=== PATIENT | male | born 1955 | race Caucasian/White ===

== ENCOUNTER 2021-01-04 08:39 | Outpatient (CLI) | payer BC, SELFPAY | END 2021-01-04 08:40 | disposition home or self-care (01) | PROVIDERS: Visit Provider Nurse Practitioner Family | DX: K51.90 Ulcerative colitis, unspecified, without complications (principal) | CPT/HCPCS: 87045; 87324; 87427; 87493 ==

== ENCOUNTER 2021-02-16 07:38 | Outpatient (RCR) | payer MEDICARE, MEDICAID, SELFPAY ==
[2021-02-16] VITALS (9 sets, daily range): BP systolic 113–130; BP diastolic 71–100; PULSE 88–106; RESP 16–19; TEMP 36.7–37.1; O2SAT 96–100
[2021-02-16] MEDS: SODIUM CHLORIDE 0.9% IV 250 ML 30 ML IV CONT (08:19)
[2021-02-16] MEDS: diphenhydrAMINE HCl INJ 50 MG/ML VIAL 25 MG IV PUSH (08:20)
[2021-02-16] MEDS: ACETAMINOPHEN 325 MG TABLET 650 MG PO (08:20)
--- NOTE | 2021-02-16 08:33 | PC.NURSE ---
Written consent obtained, questions answered at this time. Pt reports has felt terrible since last December. Pt reports has been seen frequently in [place] for same and received blood transfusions in the past without incident.
--- NOTE | 2021-02-16 08:51 | PC.NURSE ---
Awaiting confirmed second type routine blood test results.
[2021-02-16 09:19] LABS: Hemoglobin 6.6 g/dL (14.0-18.0)
[2021-02-16 10:05] LABS: Iron < 10 ug/dL (49-181)
[2021-02-16 10:33] LABS: Percent Iron Saturation < 3 % (20-50)
--- NOTE | 2021-02-16 11:09 | PC.NURSE ---
Pt reports has not taken iron supplements for apx 3 weeks. Pt reports iron supplements give him black stools and cause constipation. Pt reports is not able to eat anything due to 'feeling bad' so the iron also causes nausea. Dr. Bender's MA Trudi notified at [facility] via telephone at this time for continuity of care of lab values and pt iron situation. Pt education provided about importance of taking iron pills at home.
[2021-02-16 15:10] LABS: Hematocrit 28.5 % (42.0-52.0); Hemoglobin 8.5 g/dL (14.0-18.0); Mean Corpuscular HGB Conc 29.8 g/dl (32-36); Mean Corpuscular Hemoglobin 22.4 pg (26-34); Mean Corpuscular Volume 75.2 fl (80-100); Mean Platelet Volume 8.8 fl (7.4-10.4); Platelet Count Result 439 k/mm3 (150-375); Red Blood Count 3.79 M/mm3 (4.6-6.20); Red Cell Distribution Width 22.2 % (11.5-14.5); White Blood Count 9.1 K/mm3 (4.5-10.0)
[2021-02-16 16:06] LABS: Band Neutrophils Percent 37 % (0-6); Eosinophils Absolute Manual 0.09 K/mm3 (0.02-0.5); Eosinophils Percent Manual 1 % (0-4); Monocytes Absolute Manual 0.45 K/mm3 (0.1-0.90); Monocytes Percent Manual 5 % (3-9); Neutrophils Absolute Manual 7.55 K/mm3 (1.3-6.7); Neutrophils Percent Manual 46 % (46-73); Total Cells Counted 100
[2021-02-16 16:07] LABS: Anisocytosis 3+ (NORMAL); Platelet Estimate Increased (Adequate)
[2021-02-16 16:08] LABS: Hypochromasia 2+ (NORMAL)
== END 2021-05-16 23:59 | disposition home or self-care (01) ==
LOC: ANHCPCTRAN 07:38
PROVIDERS: PCP Internal Medicine; Visit Provider Internal Medicine Gastroenterology
DX: K51.90 Ulcerative colitis, unspecified, without complications (principal); D50.9 Iron deficiency anemia, unspecified
CPT/HCPCS: 36415; 36430; 82728; 83540; 83550; 85014; 85018; 85025; 86850; 86900; 86901; 86920; A9270; J1200; J7050; P9016

== ENCOUNTER → 2021-03-27 00:02 | Outpatient (CLI) | payer MEDICARE, MEDICAID, SELFPAY ==
[2021-03-27 11:51] LABS: SARS-CoV-2 RNA PCR Negative
== END ==
PROVIDERS: PCP Internal Medicine; Visit Provider Internal Medicine Gastroenterology
DX: Z01.812 Encounter for preprocedural laboratory examination (principal); Z20.822 Contact with and (suspected) exposure to COVID-19
CPT/HCPCS: C9803; U0003; U0005

== ENCOUNTER 2021-03-30 01:39 | Day surgery (SDC) | payer MEDICARE, MEDICAID, SELFPAY ==
[2021-03-17 14:06] VITALS: BMI 24.4
[2021-03-30 08:09] VITALS: BP 103/76; PULSE 123; RESP 17; TEMP 36.1; O2SAT 98; BMI 21.9
[2021-03-30] MEDS: LACTATED RINGERS 1,000 ML 150 ML IV CONT (08:25)
--- NOTE | 2021-03-30 08:32 | SUR.PREOP ---
Pt has bruising on R FA/AC from a previous blood draw.
--- NOTE | 2021-03-30 08:55 | P.PNAN_ITS ---
Anes - Initial Pre Proc Eval Procedure: Operation Date: 03/30/21 09:15 Proposed Procedures p Flexible Sigmoidoscopy - Olman Ham MD Date/Time: 03/30/21 08:55 Surgeon: Olman Ham MD Pre Op Diagnosis: MORGAN, ulcerative colitis Patient Data Age: 66 Gender: M Height: 1.78 m Weight: 69.5 kg Last Vital Signs Temp 97 F L 03/30/21 08:09 Pulse 123 H 03/30/21 08:09 Resp 17 03/30/21 08:09 BP 103/76 03/30/21 08:09 Pulse Ox 98 03/30/21 08:09 Allergies Allergy/AdvReac Type Severity Reaction Status Date / Time Penicillins AdvReac Severe Nausea and Verified 03/30/21 08:08 Vomiting Home Medications Medication Instructions Recorded Confirmed Type cyanocobalamin (vitamin B-12) 1,000 mcg PO DAILY 12/02/20 03/30/21 History 1,000 mcg capsule multivitamin with iron 1 tablet PO DAILY 12/02/20 03/30/21 History tamsulosin 0.4 mg capsule 0.4 mg PO DAILY 12/02/20 03/30/21 History mesalamine 1.2 gram tablet,delayed 4.8 g PO DAILY 90 Days #360 tablet 01/13/21 03/30/21 Rx release ondansetron HCl 4 mg tablet 4 mg PO Q8H PRN #20 tablet 01/13/21 03/30/21 Rx azathioprine 50 mg tablet 50 mg PO DAILY 30 Days #30 tablet 01/26/21 03/30/21 Rx ferrous sulfate 324 mg (65 mg 324 mg PO DAILY 30 Days #30 tablet 02/10/21 03/30/21 Rx iron) tablet,delayed release prednisone 5 mg tablet 5 mg PO DAILY #147 tablet 02/26/21 03/30/21 Rx Patient hx anesthesia problems: none Family hx anesthesia problems: none Results Review: All pre-operative results and documents have been reviewed as part of the pre-operative evaluation. [facility] Past Medical History Medical History Clostridioides difficile infection Iron deficiency anemia Ulcerative colitis Social History Social History Smoking packs per day: 1 Smoking cigarettes per day: 20.0 Tobacco type: cigarettes Second hand tobacco smoke exposure: No Alcohol intake: current Drinks per week: 5 Alcohol use details: Wine Substance use: unknown Substance use type: marijuana Living arrangements: alone Gender identity (if verbalized by the patient): Male Spiritual care concerns: No Agree to blood products: Yes Anes - Eval Final PreProcedure Day of Procedure 03/30/21 08:55 Patient weight: normal Heart: regular rate and rhythm Lungs: clear to auscultation Airway: Mallampati scale class II Neurological: alert and oriented Last oral intake: >/= 8 hours ASA classification: II Emergent: no Anesthetic plan: proceed Anesthesia type and monitoring: general GIVS and standard monitoring Results Review: All pre-operative results and documents have been reviewed as part of the pre-operative evaluation. Informed Consent: The patient's anesthetic plan and its attendant risks and benefits were discussed with the patient/family/POA. Questions were solicited and answers provided to the satisfaction of the patient/family/POA.
--- NOTE | 2021-03-30 09:16 | WPDHPUPDATE1 ---
History and Physical Update Update Date/Time: 03/30/21 09:16 History and Physical has been reviewed, including an updated exam of the patient. There are NO changes in the patient's condition. Risks, benefits, and alternatives have been discussed and questions answered. Patient agrees to proceed with procedure.
[2021-03-30 09:30] VITALS: BP 100/64; PULSE 104; RESP 20; O2SAT 97
[2021-03-30 09:40] VITALS: BP 121/71; PULSE 93; RESP 19; O2SAT 100
[2021-03-30 09:50] VITALS: BP 116/75; PULSE 92; RESP 20; O2SAT 98
== END 2021-03-30 10:08 | disposition home or self-care (01) ==
PROVIDERS: PCP Internal Medicine; Visit Provider Internal Medicine Gastroenterology
PROC: 0DJD8ZZ Inspection of Lower Intestinal Tract, Via Natural or Artificial Opening Endoscopic (ICD-10-PCS; CPT 45330; principal; 2021-03-30 09:15)
DX: Z09 Encounter for follow-up examination after completed treatment for conditions other than malignant neoplasm (principal); K51.00 Ulcerative (chronic) pancolitis without complications; R19.7 Diarrhea, unspecified; D50.9 Iron deficiency anemia, unspecified; Z87.891 Personal history of nicotine dependence; Z86.19 Personal history of other infectious and parasitic diseases; F12.90 Cannabis use, unspecified, uncomplicated; D75.839 Thrombocytosis, unspecified
CPT/HCPCS: 45331; 88305; J2704; J7120

== ENCOUNTER 2021-08-12 10:44 | Outpatient (CLI) | payer MEDICARE, MEDICAID, SELFPAY ==
[2021-08-12 11:22] LABS: Basophils Absolute Auto 0.1 K/mm3 (0.0-0.1); Basophils Percent Auto 0.8 % (0.2-1.2); Eosinophils Percent Auto 0.4 % (0-4.4); Hematocrit 40.6 % (42.0-52.0); Hemoglobin 11.7 g/dL (14.0-18.0); Immature Granulocyte Absolute 0.02 K/mm3 (0.00-0.031); Immature Granulocyte Percent A 0.2 % (0-0.5); Lymphocytes Absolute Auto 0.64 K/mm3 (0.9-3.2); Mean Corpuscular HGB Conc 28.8 g/dl (32-36); Mean Corpuscular Hemoglobin 23.3 pg (26-34); Mean Corpuscular Volume 80.9 fl (80-100); Mean Platelet Volume 9.8 fl (7.4-10.4); Monocytes Absolute Auto 0.3 K/mm3 (0.1-0.6); Monocytes Percent Auto 3.6 % (2.6-8.5); Neutrophils Absolute Auto 8.1 K/mm3 (1.3-6.7); Platelet Count Result 551 k/mm3 (150-375); Red Blood Count 5.02 M/mm3 (4.6-6.20); Red Cell Distribution Width 19.9 % (11.5-14.5); White Blood Count 9.2 K/mm3 (4.5-10.0)
[2021-08-12 11:35] LABS: Alanine Aminotransferase 18 U/L (6-50); Albumin Level 4.2 g/dL (3.5-5.1); Alkaline Phosphatase 78 U/L (38-126); Anion Gap 6 mmol/L (8-16); Aspartate Amino Transferase 29 U/L (17-59); Bilirubin,Total 0.1 mg/dL (0.2-1.3); Blood Urea Nitrogen 17 mg/dL (9-20); Calcium 8.8 mg/dL (8.4-10.2); Carbon Dioxide 25 mmol/L (22-30); Chloride 106 mmol/L (98-107); Estimated Glomerular Filt Rate > 60; Glucose 97 mg/dL (65-110); Potassium 4.9 mmol/L (3.4-5.0); Sodium 137 mmol/L (137-145)
== END 2021-08-12 10:45 | disposition home or self-care (01) ==
LOC: ANHLAB 10:46
PROVIDERS: PCP Internal Medicine; Visit Provider Internal Medicine Hematology & Oncology
DX: D64.9 Anemia, unspecified (principal)
CPT/HCPCS: 36415; 80053; 85025

== ENCOUNTER 2021-10-30 08:38 | Outpatient (CLI) | payer MEDICARE, MEDICAID, SELFPAY ==
[2021-10-30 10:03] LABS: Hematocrit 47.5 % (42.0-52.0); Hemoglobin 14.7 g/dL (14.0-18.0); Mean Corpuscular HGB Conc 30.9 g/dl (32-36); Mean Corpuscular Hemoglobin 26.9 pg (26-34); Mean Platelet Volume 10.6 fl (7.4-10.4); Platelet Count Result 234 k/mm3 (150-375); Red Blood Count 5.46 M/mm3 (4.6-6.20); Red Cell Distribution Width 17.6 % (11.5-14.5); White Blood Count 5.6 K/mm3 (4.5-10.0)
[2021-10-30 10:06] LABS: Alanine Aminotransferase 19 U/L (6-50); Albumin Level 4.2 g/dL (3.5-5.1); Alkaline Phosphatase 67 U/L (38-126); Anion Gap 8 mmol/L (8-16); Aspartate Amino Transferase 24 U/L (17-59); Bilirubin,Total 0.4 mg/dL (0.2-1.3); Blood Urea Nitrogen 19 mg/dL (9-20); CRP < 0.5 mg/dL (<1.0); Calcium 9.2 mg/dL (8.4-10.2); Carbon Dioxide 24 mmol/L (22-30); Chloride 103 mmol/L (98-107); Estimated Glomerular Filt Rate > 60; Glucose 122 mg/dL (65-110); Sodium 135 mmol/L (137-145)
[2021-10-30 10:35] LABS: Erythrocyte Sedimentation Rate 2 mm/hr (0-20)
== END 2021-10-30 08:39 | disposition home or self-care (01) ==
PROVIDERS: PCP Internal Medicine; Visit Provider Nurse Practitioner Family
DX: K51.90 Ulcerative colitis, unspecified, without complications (principal); D50.9 Iron deficiency anemia, unspecified
CPT/HCPCS: 36415; 80053; 85027; 85652; 86140

== ENCOUNTER 2022-01-12 13:26 | Outpatient (CLI) | payer MEDICARE, MEDICAID, SELFPAY ==
[2022-01-12 13:49] LABS: Hematocrit 47.4 % (42.0-52.0); Hemoglobin 15.1 g/dL (14.0-18.0); Mean Corpuscular HGB Conc 31.9 g/dl (32-36); Mean Corpuscular Hemoglobin 28.5 pg (26-34); Mean Corpuscular Volume 89.6 fl (80-100); Mean Platelet Volume 10.1 fl (7.4-10.4); Platelet Count Result 245 k/mm3 (150-375); Red Blood Count 5.29 M/mm3 (4.6-6.20); Red Cell Distribution Width 14.2 % (11.5-14.5); White Blood Count 6.5 K/mm3 (4.5-10.0)
[2022-01-12 14:03] LABS: Iron 62 ug/dL (49-181)
[2022-01-12 14:05] LABS: Alanine Aminotransferase 20 U/L (6-50); Albumin Level 4.6 g/dL (3.5-5.1); Alkaline Phosphatase 82 U/L (38-126); Anion Gap 9 mmol/L (8-16); Aspartate Amino Transferase 27 U/L (17-59); Bilirubin,Total 0.3 mg/dL (0.2-1.3); Blood Urea Nitrogen 19 mg/dL (9-20); CRP < 0.5 mg/dL (<1.0); Carbon Dioxide 28 mmol/L (22-30); Chloride 104 mmol/L (98-107); Estimated Glomerular Filt Rate > 60; Glucose 105 mg/dL (65-110); Potassium 4.1 mmol/L (3.4-5.0); Sodium 141 mmol/L (137-145)
[2022-01-12 14:12] LABS: Percent Iron Saturation 13 % (20-50)
[2022-01-12 15:40] LABS: Erythrocyte Sedimentation Rate 4 mm/hr (0-20)
== END 2022-01-12 13:27 | disposition home or self-care (01) ==
PROVIDERS: Visit Provider Nurse Practitioner Family
DX: K51.90 Ulcerative colitis, unspecified, without complications (principal); D50.9 Iron deficiency anemia, unspecified
CPT/HCPCS: 36415; 80053; 82728; 83540; 83550; 85027; 85652; 86140

== ENCOUNTER 2022-03-22 01:29 | Day surgery (SDC) | payer MEDICARE, MEDICAID, SELFPAY ==
[2022-03-08 14:28] VITALS: BMI 25.6
[2022-03-22 08:41] VITALS: BP 125/85; PULSE 78; RESP 16; TEMP 36; O2SAT 98; BMI 25.2
[2022-03-22] MEDS: LACTATED RINGERS 1,000 ML 150 ML IV CONT (08:54)
--- NOTE | 2022-03-22 09:23 | PM.HPGS ---
History of Present Illness History of Present Illness Consent: Risks, benefits, and alternatives have been discussed and questions answered. Patient agrees to proceed with procedure. Chief complaint: ulcerative colitis Narrative: Henrry Qureshi is a 67 year old male with uc/pancolitis diagnosed 2020, colonoscopy last year still with active disease, now feels much better with infliximab infusion, mesalamine and imuran. He is not longer anemic, still loose stools in the morning but he can tell difference and even started working again. Review of Systems Constitutional: Constitutional: Denies headache(s) and Denies weakness Eyes: Eyes: Denies blurry vision ENT: Reports Normal hearing present, Denies headache(s) and Denies neck pain Cardiovascular: Cardiovascular: Denies chest pain and Denies dyspnea Respiratory: Respiratory: Denies dyspnea Gastrointestinal: Gastrointestinal: Reports no additional gastrointestinal complaints Genitourinary: Genitourinary: Denies dysuria Musculoskeletal: Musculoskeletal: Denies neck pain Integumentary/Breasts: Skin/Breast: Denies dry skin Neurologic: Reports Normal hearing present, Denies headache(s) and Denies weakness Psychiatric: Psychiatric: Denies anxiety Endocrine: Endocrine: Denies change in body appearance Hematologic/Lymphatic: Hematologic/Lymphatic: Denies easy bleeding Allergic/Immunologic: Allergic/Immunologic: Denies urticaria PMFSH Past Medical History Medical History Clostridioides difficile infection Iron deficiency anemia Thrombocytosis Ulcerative colitis Social History Social History Smoking packs per day: 1 Smoking cigarettes per day: 20.0 Years smoked: 30 Smoking pack-years: 30.00 Smoking status: Former smoker Tobacco type: cigarettes Second hand tobacco smoke exposure: No Smoking end date: 03/17/09 Alcohol intake: former Drinks per week: 5 Alcohol use details: Wine Substance use: current Substance use type: marijuana Last use: Daily Living arrangements: alone Gender identity (if verbalized by the patient): Male Spiritual care concerns: No Agree to blood products: Yes Meds Home Medications and Allergies Home Medications Medication Instructions Recorded Confirmed Type infliximab 100 mg intravenous See Rx Instructions .Route .COMPLEX 11/02/21 03/22/22 History solution (Remicade) mesalamine 1.2 gram tablet,delayed 4.8 g PO DAILY 3 months #360 tabs 12/06/21 03/22/22 Rx release azathioprine 50 mg tablet (Imuran) 50 mg PO DAILY #90 tabs 12/24/21 03/22/22 Rx ferrous sulfate 325 mg (65 mg 65 mg PO DAILY 03/08/22 03/22/22 History iron) capsule,extended release multivitamin with minerals-folic 1 tablet PO DAILY 03/08/22 03/22/22 History acid 0.4 mg tablet Allergies Allergy/AdvReac Type Severity Reaction Status Date / Time amoxicillin Allergy Rash Verified 03/22/22 08:40 Vital Signs Vital Signs - 24 hr 03/22/22 08:41 Temperature 96.8 F L Pulse Rate 78 Respiratory Rate 16 Blood Pressure 125/85 Pulse Oximetry 98 Oxygen Delivery Room Air Exam Const: General: comfortable and no acute distress HENMT: Face/Nose/Sinus: Normal nares present Eyes: General: appearance normal, both eyes and all related structures Neck: Neck: no JVD Resp: Auscultation: clear to auscultation bilaterally Cardio: Rate: regular rate Rhythm: regular rhythm GI: Inspection: non-distended GI Palp: Yes Soft to palpation Skin: General skin exam: normal color Neuro: General: gait normal Speech: normal speech Extrem: General: normal to inspection Psych: Mental Status: mental status grossly normal Assessment and Plan Assessment and plan (1) Ulcerative colitis: Code(s): K51.90 - Ulcerative colitis, unspecified, without complications Status: Acute Assessment and Plan:
--- NOTE | 2022-03-22 09:24 | WPDANESEPPF ---
Anes - Initial Pre Proc Eval Procedure: Operation Date: 03/22/22 10:00 Proposed Procedures p Colonoscopy - Olman Ham MD Date/Time: 03/22/22 09:24 Surgeon: Olman Ham MD Pre Op Diagnosis: ulcerative colitis Patient Data Age: 67 Gender: M Height: 1.78 m Weight: 79.7 kg Last Vital Signs Temp 96.8 F L 03/22/22 08:41 Pulse 78 03/22/22 08:41 Resp 16 03/22/22 08:41 BP 125/85 03/22/22 08:41 Pulse Ox 98 03/22/22 08:41 O2 Del Method Room Air 03/22/22 08:41 Allergies Allergy/AdvReac Type Severity Reaction Status Date / Time amoxicillin Allergy Rash Verified 03/22/22 08:40 Home Medications Medication Instructions Recorded Confirmed Type infliximab 100 mg intravenous See Rx Instructions .Route .COMPLEX 11/02/21 03/22/22 History solution (Remicade) mesalamine 1.2 gram tablet,delayed 4.8 g PO DAILY 3 months #360 tabs 12/06/21 03/22/22 Rx release azathioprine 50 mg tablet (Imuran) 50 mg PO DAILY #90 tabs 12/24/21 03/22/22 Rx ferrous sulfate 325 mg (65 mg 65 mg PO DAILY 03/08/22 03/22/22 History iron) capsule,extended release multivitamin with minerals-folic 1 tablet PO DAILY 03/08/22 03/22/22 History acid 0.4 mg tablet Patient hx anesthesia problems: none Family hx anesthesia problems: none Results Review: All pre-operative results and documents have been reviewed as part of the pre-operative evaluation. [facility] Past Medical History Medical History Clostridioides difficile infection Iron deficiency anemia Thrombocytosis Ulcerative colitis Social History Social History Smoking packs per day: 1 Smoking cigarettes per day: 20.0 Years smoked: 30 Smoking pack-years: 30.00 Smoking status: Former smoker Tobacco type: cigarettes Second hand tobacco smoke exposure: No Smoking end date: 03/17/09 Alcohol intake: former Drinks per week: 5 Alcohol use details: Wine Substance use: current Substance use type: marijuana Last use: Daily Living arrangements: alone Gender identity (if verbalized by the patient): Male Spiritual care concerns: No Agree to blood products: Yes Anes - Eval Final PreProcedure Day of Procedure 03/22/22 09:24 Patient weight: normal Heart: regular rate and rhythm Lungs: clear to auscultation Airway: Mallampati scale class II Neurological: alert and oriented Last oral intake: >/= 8 hours ASA classification: II Emergent: no Anesthetic plan: proceed Anesthesia type and monitoring: general GIVS and standard monitoring Results Review: All pre-operative results and documents have been reviewed as part of the pre-operative evaluation. Informed Consent: The patient's anesthetic plan and its attendant risks and benefits were discussed with the patient/family/POA. Questions were solicited and answers provided to the satisfaction of the patient/family/POA.
[2022-03-22 09:40] VITALS: BP 121/91; PULSE 77; RESP 22; O2SAT 98
[2022-03-22 09:50] VITALS: BP 132/86; PULSE 74; RESP 17; O2SAT 98
[2022-03-22 10:00] VITALS: BP 122/93; PULSE 82; RESP 19; O2SAT 98
--- NOTE | 2022-03-22 10:27 | SUR.PHASEII ---
Patient complains of rectal bleeding in recovery. Patient had blood all over chair and dripping on floor. Went and spoke with Dr. Ospina regarding bleeding, Dr. Ospina to bedside to assess and speak with patient. No new orders at this time.
== END 2022-03-22 10:26 | disposition home or self-care (01) ==
PROVIDERS: Visit Provider Internal Medicine Gastroenterology
PROC: 0DJD8ZZ Inspection of Lower Intestinal Tract, Via Natural or Artificial Opening Endoscopic (ICD-10-PCS; CPT 45378; principal; 2022-03-22 10:00)
DX: K51.90 Ulcerative colitis, unspecified, without complications (principal); K62.89 Other specified diseases of anus and rectum; D50.9 Iron deficiency anemia, unspecified; Z79.620 Long term (current) use of immunosuppressive biologic; Z87.891 Personal history of nicotine dependence; F12.90 Cannabis use, unspecified, uncomplicated
CPT/HCPCS: 45380; 88305; J2704; J7120

== ENCOUNTER 2022-06-20 13:10 | Outpatient (CLI) | payer MEDICARE, MEDICAID, SELFPAY ==
[2022-06-20 13:38] LABS: Hematocrit 47.5 % (42.0-52.0); Hemoglobin 15.4 g/dL (14.0-18.0); Mean Corpuscular HGB Conc 32.4 g/dl (32-36); Mean Corpuscular Hemoglobin 28.7 pg (26-34); Mean Corpuscular Volume 88.6 fl (80-100); Mean Platelet Volume 10.4 fl (7.4-10.4); Platelet Count Result 232 k/mm3 (150-375); Red Blood Count 5.36 M/mm3 (4.6-6.20); Red Cell Distribution Width 14.5 % (11.5-14.5); White Blood Count 7.8 K/mm3 (4.5-10.0)
[2022-06-20 13:51] LABS: Alanine Aminotransferase 19 U/L (6-50); Albumin Level 4.7 g/dL (3.5-5.1); Alkaline Phosphatase 64 U/L (38-126); Anion Gap 7 mmol/L (8-16); Aspartate Amino Transferase 27 U/L (17-59); Bilirubin,Total 0.5 mg/dL (0.2-1.3); Blood Urea Nitrogen 17 mg/dL (9-20); Calcium 9.1 mg/dL (8.4-10.2); Carbon Dioxide 26 mmol/L (22-30); Chloride 105 mmol/L (98-107); Estimated Glomerular Filt Rate > 60; Glucose 97 mg/dL (65-110); Potassium 4.1 mmol/L (3.4-5.0); Sodium 138 mmol/L (137-145)
== END 2022-06-20 13:11 | disposition home or self-care (01) ==
PROVIDERS: Visit Provider Nurse Practitioner Family
DX: K51.90 Ulcerative colitis, unspecified, without complications (principal)
CPT/HCPCS: 36415; 80053; 85027

== ENCOUNTER 2022-06-23 08:08 | Outpatient (CLI) | payer MEDICARE, MEDICAID, SELFPAY ==
[2022-06-23 10:25] LABS: Toxigenic C. Diff NEGATIVE (NEGATIVE)
[2022-07-04 01:47] LABS: Calprotectin, Stool 1440 mcg/g
== END 2022-06-23 08:09 | disposition home or self-care (01) ==
PROVIDERS: Visit Provider Nurse Practitioner
DX: K51.90 Ulcerative colitis, unspecified, without complications (principal); R19.7 Diarrhea, unspecified
CPT/HCPCS: 83993; 87493